=== PATIENT | female | born 1945 | race Caucasian/White ===

== ENCOUNTER 2016-09-06 20:47 | Inpatient (IN) | payer MEDICARE, OTHER ==
--- NOTE | ~2016-09-06 | DS ---
Discharge Summary [facility] [address] [place]. [address] NAME: MAGALYS BILL : [birth year] STATUS : DIS IN PAT#: [id number] AGE: 71 ADM/REG DATE : 09/06/16 MR#: [id number] REPORT SERV DATE: 09/16/16 DICTATED BY: FIOR BROOKE DATE: 09/14/16 REPORT STATUS : Draft TRANSCRIBED BY: MODL DATE: 09/14/16 ADMISSION DATE: 09/06/2016 DISCHARGE DATE: 09/14/2016 DISCHARGE DIAGNOSES: 1. Severe sepsis with shock present on admission. 2. Bacteremia with Pantoea agglomerans and viridans Streptococcus. 3. Abdominal pain, uncertain etiology despite CT and endoscopic imaging. 4. Elevated troponin with present illness, rising to 6.17 on 09/09/2016 with normal LAD, circumflex, and right coronary artery on arteriography with 25% left main origin stenosis. Positive troponin thought to be demand ischemia. 5. Uncontrolled hypertension, improved control at discharge. 6. Diffuse left perihilar and left lower lobe infiltrate, present on admission, improved at discharge. 7. Acute kidney injury, present on admission, resolved. 8. Encephalopathy, present on admission, resolved. 9. Chronic anemia. 10.Chronic pain syndrome. 11.Depression and anxiety. 12.Type 2 diabetes. 13.History of peptic ulcer disease. 14.History of gastrointestinal bleeding. 15.History of colon polyp with carcinoma post partial colon resection and reanastomosis. 16.Previous back surgery with postop methicillin-sensitive Staphylococcus aureus infection. 17.History of deep venous thrombosis. 18.Hyperlipidemia. 19.Osteoarthritis with bilateral total knee arthroplasties, right total hip arthroplasty, and left shoulder arthroplasty. 20.Internal hemorrhoids, diverticulosis, patent end-to-end colonic anastomosis on colonoscopy, 09/14/2016. 21.Gastritis on EGD, 09/14/2016. OPERATIONS AND PROCEDURES: Cardiac catheterization 09/10/2016, Dr. Nathan Ramon; EGD and colonoscopy, Dr. Matias Calles, 09/14/2016. PRESENT ILLNESS: This is a 71-year-old white female, who was triaged in the emergency room on 09/06/2016 at 1640 hours with weakness, confusion, and multiple falls. Admission ER vital signs; blood pressure 72/43, temp 99.3, pulse 86, respirations 20, and O2 saturation 93%. After evaluation in the emergency room, she was thought to have sepsis, pneumonia, and acute renal failure. She was referred to the Hospitalist Service for admission. She was seen by Dr. Preston Lyons and admitted as described on admission history and physical examination. ADDITIONAL HISTORY: Per Dr. Lyons. Discharge Summary [address] [address] NAME: MAGALYS BILL : 46 STATUS : DIS IN PAT#: [id number] AGE: 71 ADM/REG DATE : 09/06/16 MR#: [id number] REPORT SERV DATE: 09/16/16 DICTATED BY: FIOR BROOKE DATE: 09/14/16 REPORT STATUS : Draft TRANSCRIBED BY: RAFAEL DATE: 09/14/16 PHYSICAL EXAMINATION: Per Dr. Loyns. ADMISSION LABORATORY: Per Dr. Lyons. HOSPITAL COURSE: She was admitted by Dr. Lyons to the Intermediate Care Unit with: 1. Severe sepsis with shock. 2. Pneumonia. 3. Acute renal failure. 4. Acute encephalopathy. On admission, she was given crystalloid volume resuscitation and placed on a Levophed drip. Cultures were obtained. She was started on broad-spectrum antimicrobial therapy. Her hospitalist care was by Dr. Cervantes on 09/07/2016. She was moved out of the [facility] to the [address] [place] [address]. Her subsequent hospitalist care was by the undersigned. Her shock resolved. During the course of her hospitalization, she actually had uncontrolled hypertension and required intensification of her home medication regimen. Her encephalopathy resolved with treatment of her sepsis. She did not have any evidence for encephalitis or meningitis with her presentation. A CT brain done on admission showed mild cortical volume loss and findings compatible with minimal chronic deep white matter ischemic changes but no acute intracranial abnormality. Her acute kidney injury resolved with the above-mentioned therapy. Her serum creatinine which was 4.57 on admission was 0.61 at discharge. Her blood cultures from admission grew Pantoea agglomerans, Staph species agglutination negative (probable contamination), and Strep viridans. Her evaluation for possible source included transthoracic echocardiography. This showed overall left ventricular systolic function intact at 58% with apical dyskinesis new from 07/19/2012. Diastolic function was intact and right ventricular systolic function was intact. A urinalysis done on admission was negative. A CT scan of her abdomen and pelvis done with oral but without IV contrast did not demonstrate any intraabdominal abscess or other abnormality to account for the above-mentioned bacteremia. Additional gastrointestinal imaging was done with an EGD and colonoscopy as outlined above. Findings are as noted. She was seen in Infectious Disease consultation by Dr. Gordy Draper. Her antimicrobial therapy was changed to Ancef. He concurred with her GI evaluation. He felt she could transition to oral antibiotics today with Levaquin for seven days to complete a 14-day course of treatment in the absence of any identifiable source that needed further evaluation. None was found. Discharge Summary [facility] [address] [facility] [place]. [address] NAME: MAGALYS BILL : [birth year] STATUS : DIS IN PAT#: [id number] AGE: 71 ADM/REG DATE : 09/06/16 MR#: [id number] REPORT SERV DATE: 09/16/16 DICTATED BY: FIOR BROOKE DATE: 09/14/16 REPORT STATUS : Draft TRANSCRIBED BY: RAFAEL DATE: 09/14/16 She had a significant troponin elevation with her present illness. Her troponin was 0.63 on 09/07/2016 and 6.17 on 09/09/2016. She had some dyspnea and epigastric pain. Cardiology consultation was obtained. She was seen by Dr. Nathan Ramon. His impression was demand ischemia. An echocardiogram was done. Because of the above-mentioned wall abnormality, troponin elevation, and presentation, cardiac catheterization was done with findings as noted above. With resolution of her encephalopathy, her home pain management regimen was continued. There were no complications or mental status changes with this. By 09/14/2016, post endoscopic evaluation, she thought she was almost back to normal. She thought she could manage at home. She had been seen by Physical Therapy who suggested home therapy. Given her overall clinical and biochemical improvement as described, it was felt she had achieved a level of improvement and stability where she could be safely discharged home with outpatient followup to see Dr. Machuca in one week. She has a followup to see her pain management physician this week. She also follows up with Sports Medicine. She will continue her home diet. Her activity will be as tolerated plus as directed by Physical Therapy. DISCHARGE MEDICATIONS: Norvasc 10 mg daily; docusate 200 mg twice daily; Cymbalta 60 mg daily; Prinzide 20/12.5 daily; Protonix 40 mg twice daily; Percocet 10/325, a half to one four times daily as needed; Antoinette-Colace two tablets twice daily; Crestor 20 mg daily; Lunesta 3 mg at bedtime; Embeda 20/0.8 one capsule daily; Zanaflex as needed (my request to discontinue if possible); and Levaquin 750 mg daily for the next seven days. Discharge time greater than 30 minutes. DD/MODL Fior Brooke M.D. / [id number] CC: Moo Farmer M.D. Gregory Olds, MD Mark Thel, M.D. Hal Hill, M.D. Kevin P Luce, M.D. F. Lee Hamilton, M.D.
--- NOTE | ~2016-09-06 | EGD ---
EGD REPORT [facility] [address] [address] NAME: MAGALYS RETANA : 46 STATUS : ADM IN PAT#: [id number] AGE: 71 ADM/REG DATE : 09/06/16 MR#: [id number] REPORT SERV DATE: 09/14/16 DICTATED BY: ANAND CRUZ DATE: 09/14/16 REPORT STATUS : Draft TRANSCRIBED BY: [facility] DATE: 09/14/16 Endoscopy Center Patient Name: Magalys Retana Date of : 1945 Attending MD: ANAND CRUZ, Procedure Date No Time: 09/14/2016 Procedure: Colonoscopy Indications: Iron deficiency anemia secondary to chronic blood loss. Also unexplained bacteremia/sepsis Referring MD: FINESSE ROMERO MD Medicines: Monitored Anesthesia Care Complications: No immediate complications. Estimated blood loss: None. Procedure: Pre-Anesthesia Assessment: - ASA Grade Assessment: III - A patient with severe systemic disease. After I obtained informed consent, the scope was passed under direct vision. Throughout the procedure, the patient's blood pressure, pulse, and oxygen saturations were monitored continuously. The PCF [id number] was introduced through the anus and advanced to the cecum, identified by appendiceal orifice and ileocecal valve. The colonoscopy was performed without difficulty. The patient tolerated the procedure well. The quality of the bowel preparation was good. Findings: The perianal and digital rectal examinations were normal. Internal hemorrhoids were found during retroflexion and were Grade I (internal hemorrhoids that do not prolapse). A few small-mouthed diverticula were found in the sigmoid colon. There was evidence of a prior end-to-end colo-colonic anastomosis in the recto-sigmoid colon. This was patent. This was characterized by healthy appearing mucosa. The exam was otherwise without abnormality on direct and retroflexion views. Impression: - Internal hemorrhoids. - Diverticulosis in the sigmoid colon. - Patent end-to-end colo-colonic anastomosis. - The examination was otherwise normal on direct and retroflexion views. Recommendation: - Patient has a contact number available for emergencies. The signs and symptoms of potential delayed complications were discussed with the patient. Return to EGD REPORT [address] [address] NAME: MAGALYS RETANA : [birth year] STATUS : ADM IN [facility]#: [id number] AGE: 71 ADM/REG DATE : 09/06/16 MR#: [id number] REPORT SERV DATE: 09/14/16 DICTATED BY: ANAND CRUZ DATE: 09/14/16 REPORT STATUS : Draft TRANSCRIBED BY: [employer] DATE: 09/14/16 normal activities tomorrow. Written discharge instructions were provided to the patient. - Return to previous diet. - Continue present medications. - Return to previous diet. - Repeat colonoscopy in 5 years for surveillance. Procedure Code(s): --- Professional --- 97620, Colonoscopy, flexible, proximal to splenic flexure; diagnostic, with or without collection of specimen(s) by brushing or washing, with or without colon decompression (separate procedure) Diagnosis Code(s): --- Professional --- K64.0, First degree hemorrhoids K57.30, Diverticulosis of large intestine without perforation or abscess without bleeding Z98.0, Intestinal bypass and anastomosis status D50.0, Iron deficiency anemia secondary to blood loss (chronic) CPT copyright 2013 [employer]. All rights reserved. The codes documented in this report are preliminary and upon retort feeder ground bone review may be revised to meet current compliance requirements. ANAND CRUZ, 09/14/2016 8:53 AM Number of Addenda: 0 Note Initiated On: 09/14/2016 8:08 AM Scope Withdrawal Time 0 hours 14 minutes 34 seconds [address] [place] [address]
--- NOTE | ~2016-09-06 | CN ---
Consultation Report [facility] [address] [place]. [address] NAME: MAGALYS BILL : [birth year] STATUS : ADM IN [facility]#: [id number] AGE: 71 ADM/REG DATE : 09/06/16 MR#: [id number] REPORT SERV DATE: 09/11/16 DICTATED BY: SUSIE DRAPER DATE: 09/10/16 REPORT STATUS : Draft TRANSCRIBED BY: MODL DATE: 09/10/16 INFECTIOUS DISEASE CONSULT DATE OF CONSULTATION: 09/10/2016 REASON FOR CONSULTATION: Sepsis. HISTORY OF PRESENT ILLNESS: This is a 71-year-old female with a past medical history notable for diabetes, partial colon resection for a cancerous polyp in 2007, osteoarthritis, status post multiple joint replacements, degenerative spine disease with previous spine surgery complicated by Staph aureus infection in 2007, and other problems as outlined below. She was in her baseline state of health until 09/06/2016 when she had the onset of unsteadiness and fell multiple times and was confused. The patient states that prior to 09/06/2016, she was doing okay without any particular new issues. Because of these falls though, she was brought to the emergency department at [facility] on the afternoon of 09/06/2016 where she had a blood pressure of 72/43 and became mildly tachycardic and was mildly tachypneic and had a white blood cell count of 17,000, procalcitonin of 7, and creatinine of 4.57. Blood cultures were obtained. Her urinalysis is negative. She was started on vancomycin and cefepime. Her white blood cell count improved. She had no significant fevers in the hospital. One of the admission blood cultures has returned with Pantoea agglomerans, viridans strep, and coagulase-negative Staph. Vancomycin was stopped on 09/09/2016. On 09/08/2016, the patient had a CT scan of the abdomen and pelvis without IV contrast which showed no significant pathology. There was some mild dilatation of the extrahepatic biliary duct. The patient has developed some vague episodic abdominal discomfort poorly localized here in the hospital and she says she has had this off and on over the past year without any associated significant nausea, vomiting, or diarrhea. The patient had a mildly elevated troponin on admission and some dyskinesis on echocardiogram leading to cardiac cath today which was essentially negative. She overall does feel better. Finally, she notes some worsening of her chronic back pain, which is followed by Dr. Vazquez of Pain Management. Denies though any outpatient fevers, chills, or sweats. PAST MEDICAL HISTORY: In addition to the above is notable for bilateral total knee arthroplasties, right total hip arthroplasty, and left total shoulder arthroplasty. She has had hysterectomy, appendectomy, and tonsillectomy. Had a past spine stimulator. Other diagnoses include gastroesophageal reflux with hiatal hernia, history of anxiety and depression, chronic anemia, and history of peptic ulcer disease. ALLERGIES: NO KNOWN DRUG ALLERGIES. PRESENT MEDICATIONS: Include cefepime, Lipitor, Colace, Cymbalta, subcutaneous heparin, Protonix, and Senokot. SOCIAL HISTORY: She lives with her . Nonsmoker. Nondrinker. There are 11 cats and a pet dog. She does go to christianity but is not especially active and no particular hobbies. Consultation Report [address] [place]. [address] NAME: MAGALYS BILL : [birth year] STATUS : ADM IN [facility]#: [id number] AGE: 71 ADM/REG DATE : 09/06/16 MR#: [id number] REPORT SERV DATE: 09/11/16 DICTATED BY: SUSIE DRAPER DATE: 09/10/16 REPORT STATUS : Draft TRANSCRIBED BY: RAFAEL DATE: 09/10/16 FAMILY HISTORY: Notable for coronary artery disease. REVIEW OF SYSTEMS: As outlined above. In addition, no recent dental problems. No swallowing symptoms. No genitourinary complaints. No significant weight change. PHYSICAL EXAMINATION: VITAL SIGNS: The patient weighs 90 kg. She is afebrile. Blood pressure 139/76, pulse 82, and respiratory rate 16. GENERAL: She is alert, in no acute distress, and pleasant. HEAD AND NECK: Oral cavity is clear. No thrush. Neck is supple. No adenopathy. LUNGS: Clear to auscultation. CARDIAC: Regular rate and rhythm. Normal S1, S2 without murmur, gallop, or rub. ABDOMEN: Shows bowel sounds to be present, nondistended, very soft. No significant tenderness to palpation. EXTREMITIES: Show no rash or edema. No stigmata of endocarditis. She has a peripheral IV without phlebitis. LABORATORY STUDIES: White blood cell count has declined to 10.0 today, hemoglobin 10.5, and platelets 282. Creatinine 0.73. Procalcitonin yesterday was down to 0.87. Liver function tests on 09/07/2016 normal. Microbiology studies as noted above. Urinalysis is negative. IMAGING STUDIES: As noted. IMPRESSION: Sepsis on admission with shock with one of two admission blood cultures growing Pantoea and viridans strep. The coagulase-negative Staph is most likely a contaminant. The source of this is not clear at all. The polymicrobial bacteremia with these organisms increases our suspicion for a gastrointestinal or biliary tract source, but nothing is evident on the CT scan here, the liver function tests are normal, she has had a cholecystectomy, and she really did not present with symptoms to strongly suggest such as source. She does have some vague abdominal discomfort now. The patient has a history of infection in her spine and has a hardware in her spine and does have worsening back pain, but it would be very unlikely for her to have developed a new spine infection with these organisms. PLAN: 1. We will change antibiotics to Ancef. 2. GI has been consulted. We will consider colonoscopy as an outpatient. Her last colonoscopy was two years ago. 3. May transition her to oral antibiotics on Wednesday with Levaquin for seven more days of therapy to complete a 14 day course of treatment. We will continue the IV Ancef until then. Consultation Report [address] [place]. [address] NAME: MAGALYS BILL : [birth year] STATUS : ADM IN [facility]#: [id number] AGE: 71 ADM/REG DATE : 09/06/16 MR#: [id number] REPORT SERV DATE: 09/11/16 DICTATED BY: SUSIE DRAPER DATE: 09/10/16 REPORT STATUS : Draft TRANSCRIBED BY: RAFAEL DATE: 09/10/16 BRENNEN/RAFAEL Suise Draper M.D. / [id number] CC: Sb Crowe M.D. UNKNOWN
--- NOTE | ~2016-09-06 | PRECARD ---
[facility] [address] [facility] [place]. [address] NAME: MAGALYS RETANA : [birth year] STATUS : ADM IN [facility]#: [id number] AGE: 71 ADM/REG DATE : 09/06/16 MR#: [id number] REPORT SERV DATE: 09/08/16 DICTATED BY: CHAPARRITA RAMON DATE: 09/08/16 REPORT STATUS : Draft TRANSCRIBED BY: RAFAEL DATE: 09/08/16 DATE OF ADMISSION: 09/06/2016 HISTORY: Ms. Magalys Retana is a 71-year-old woman who has been admitted with septic shock, pneumonia, acute kidney injury, encephalopathy. Cardiology is consulted for elevated troponin. Ms. Retana was doing well until this past Wednesday. On Wednesday, she had developed epistaxis, weakness, fatigue, orthostatic symptoms. She states that she fell twice hitting her face and chest against the ground. She was admitted to the ICU with delirium, confusion. Her initial blood pressure 72/43. Her white count was 17,000, creatinine was 4.57, baseline is 0.98, procalcitonin was 7.0, lactate was 1.4, INR is 1.2. Chest x-ray reportedly demonstrated a retrocardiac infiltrate. Two days later, she is feeling much better. She describes some chest wall tenderness. She denies any exertional chest discomfort recently. She denies orthopnea or PND. She has had no palpitations. PAST MEDICAL HISTORY: Hip surgery, prior left shoulder surgery, spinal cord stimulator, cholecystectomy. SOCIAL HISTORY: No alcohol or tobacco. She is . CURRENT MEDICATIONS: Lipitor, Maxipime, Colace, Cymbalta, heparin subcu, vancomycin, cefepime. REVIEW OF SYSTEMS: A complete review of systems obtained, pertinent negative and remarkable, except as noted above and below, all systems addressed. PHYSICAL EXAMINATION: VITAL SIGNS: Blood pressure is about 140/70, heart rate is about 95. GENERAL: Comfortable, in no acute distress. HEENT: No xanthelasma; lips without cyanosis. LUNGS: Clear to auscultation, no wheezes, rales or rhonchi; good breath sounds. Chest wall is mildly tender. COR: No JVD or hepatojugular reflux, no murmurs, rubs or gallops, impulse mid clavicular line without carotid or abdominal bruits; normal S1 and S2. ABDOMEN: Bowel sounds positive, normal activity, without tenderness, masses or hepatosplenomegaly. EXTREMITIES: No edema, cyanosis. SKIN: Normal turgor. MS: Normal muscle strength, without kyphosis/scoliosis. [facility] [address] [place]. [address] NAME: MAGALYS RETANA : [birth year] STATUS : ADM IN PAT#: [id number] AGE: 71 ADM/REG DATE : 09/06/16 MR#: [id number] REPORT SERV DATE: 09/08/16 DICTATED BY: CHAPARRITA RAMON DATE: 09/08/16 REPORT STATUS : Draft TRANSCRIBED BY: RAFAEL DATE: 09/08/16 NEURO/PSYCH: Alert and oriented times 4, no apparent anxiety or depression. DATA: EKG, sinus rhythm with nonspecific ST-T wave changes. Troponin admission initially 0.67, subsequently today is 5.0. BNP is 310. ASSESSMENT: Ms. Retana is markedly improved. Her creatinine decreased from 4.57 to 1.07. Her pressure is stable, she did not receive pressure support while she was in the hospital. She also denies chest discomfort, other than chest tenderness on repeated questioning. Her EKG demonstrates no ischemia. On her presentation, this elevated troponin is most consistent with demand ischemia, not a myocardial infarction. PLAN: 1. We will obtain office notes. 2. Echocardiogram to assess left ventricular function. WILDA/RAFAEL Chaparrita Ramon M.D. / [id number] CC: Noel Cervantes M.D.
--- NOTE | ~2016-09-06 | CN ---
Consultation Report [facility] [address] [place]. [address] NAME: MAGALYS RETANA : [birth year] STATUS : ADM IN [facility]#: [id number] AGE: 71 ADM/REG DATE : 09/06/16 MR#: [id number] REPORT SERV DATE: 09/11/16 DICTATED BY: FORTUNATO GRAVES DATE: 09/11/16 REPORT STATUS : Draft TRANSCRIBED BY: MODEnedelia DATE: 09/11/16 GI CONSULTATION DATE OF CONSULTATION: 09/11/2016 REASON FOR CONSULTATION: Evaluation and management of abdominal pain, sepsis rule out GI source. HISTORY OF PRESENT ILLNESS: Ms Retana is a very pleasant 71-year-old female patient, known to Dr. Nila Nair in the outpatient setting, who presented on the 09/06/2016 with confusion, falls, as well as evidence of sepsis. She has undergone workup with blood cultures being obtained on admission, one of those returned positive for Pantoea agglomerans, Viridans strep, and coagulase negative Staph. She is presently on Ancef. She states that she does not remember a lot about what went on prior to her coming in, but she was feeling up to her baseline health up until around 09/05/2016. She states that she had prior to that been having some episodes with periodic falls, but on 09/05/2016 she had a lot of increased unsteadiness and she had multiple falls and had confusion. In the emergency room, she was hypotensive and tachycardic. Her white blood cell count was elevated at 17 as well as at 7. CT scan of the abdomen and pelvis with no contrast was negative from a Gastrointestinal standpoint. She states that she has had some on and off epigastric abdominal discomfort for the last one year. She states it as a "jug" feeling. No true pain. She states that she will feel a little bit nauseous with this, but she has no vomiting. Her last endoscopy was with Dr. Castano at [facility] in September 2014. This was done for anemia and melena. She had an upper exam on 09/08/2014 showing erythema at the gastroesophageal junction with biopsies being taken and hiatal hernia. Normal duodenum and erythematous mucosa in the prepyloric region of the stomach, which all were biopsied. Colonoscopy the next day, showed patent end-to-end colocolonic anastomosis. She had diverticulosis of the sigmoid colon and a normal examined ileum. Biopsies from that exam, chemical gastritis, H. pylori negative on the upper as well as squamocolumnar junction mucosa within normal limits. No intestinal metaplasia or dysplasia was seen. I have discussed with the patient EGD and colonoscopy inpatient vs outpatient. I had discussed this with Dr. Draper prior to seeing the patient. He stated it could be done as an outpatient if needed. The patient opts to have this done while she is in the hospital. I discussed with her risks, benefits, alternatives, and complications to include, but not limited to the risk of bleeding, perforation, infection, reaction to medication as well as cardiac and pulmonary side effects. She will be in the hospital over the weekend for IV antibiotics. We will plan to prep her on Wednesday for endoscopy on Wednesday. She has been seen by Cardiology and has had a cardiac catheterization, which was negative and cardiology has signed off. PAST MEDICAL HISTORY: Positive for diverticulosis, diabetes, partial colon resection secondary to cancerous polyp, osteoarthritis, joint replacement, degenerative spine disease with spine surgery in the past, history of Staph aureus infection status post back surgery, gastritis. She has had bilateral total knee, right total hip, left total shoulder, appendectomy, hysterectomy, tonsillectomy, spine stimulator, GERD, hiatal hernia, anxiety Consultation Report [facility] [address] [place]. [address] NAME: MAGALYS RETANA : [birth year] STATUS : ADM IN [facility]#: [id number] AGE: 71 ADM/REG DATE : 09/06/16 MR#: [id number] REPORT SERV DATE: 09/11/16 DICTATED BY: FORTUNATO GRAVES DATE: 09/11/16 REPORT STATUS : Draft TRANSCRIBED BY: MODEnedelia DATE: 09/11/16 and depression, and anemia. SOCIAL HISTORY: She lives independently with her . Denies alcohol, tobacco, or illicits. FAMILY HISTORY: Noncontributory from a GI standpoint. ALLERGIES: ADHESIVE TAPE, KIWI, AND ORANGE BLOSSOM. MEDICATIONS: Docusate sodium, Cymbalta, Lunesta, Prinzide, Embeda, Patanol, Percocet, Protonix, Crestor, and Antoinette-Colace. REVIEW OF SYSTEMS: A 10-point review of systems has been obtained with pertinent positives being addressed in the history of present illness. PHYSICAL EXAMINATION: VITAL SIGNS: Temperature is 97.4, pulse 94, respirations 18, and blood pressure 129/79. NEUROLOGIC: Reveals an alert, obese female resting in bed with no obvious focal deficits. GENERAL: Cooperative, in no apparent distress. Awake, alert and oriented x3. HEAD, EARS, EYES, NOSE, AND THROAT: Anicteric. Pupils are equal, round, and reactive to light and accommodation. Normocephalic and atraumatic. NECK: Supple. No JVD, no palpable nodes. LUNGS: Decreased bilaterally in the bases. Normal respiratory effort exhibited, equal expansion. CARDIAC: Regular rate and rhythm. ABDOMEN: Obese with mild epigastric tenderness to palpation without rebound or guarding. Hypoactive bowel sounds. No organomegaly appreciated. SKIN: Warm, dry, and intact. PERTINENT LABORATORY DATA: Sodium 142, potassium 3.8, BUN 9, and creatinine 0.4. White count 7.6, hemoglobin 10.2, hematocrit 31.4, and platelets 292. Troponin is elevated at 4.11. Total bilirubin 0.4, alkaline phosphatase 70, ALT 14, AST 62, and procalcitonin presently 0.87. ASSESSMENT/PLAN: 1. Strep viridans/Pantoea agglomerans sepsis/shock, present on admission. 2. Elevated troponin status post negative cardiac cath. 3. Abdominal discomfort, epigastric, ongoing. 4. Acute kidney injury. PLAN: 1. I have discussed with the patient. She prefers for endoscopy before discharge. We will plan to do this on Wednesday under the care of Dr. Argueta. Consultation Report [address] [place]. [address] NAME: MAGALYS RETANA : [birth year] STATUS : ADM IN [facility]#: [id number] AGE: 71 ADM/REG DATE : 09/06/16 MR#: [id number] REPORT SERV DATE: 09/11/16 DICTATED BY: FORTUNATO GRAVES DATE: 09/11/16 REPORT STATUS : Draft TRANSCRIBED BY: MODL DATE: 09/11/16 2. The patient requests MiraLAX prep. We will write for MiraLAX prep. Prep her on Wednesday for endoscopy on Wednesday. ARIANA/BREANNAL MAKAYLA Finn / [id number] CC: Sb Crowe M.D.
--- NOTE | ~2016-09-06 | HP ---
History And Physical [place] [address] [place]. [address] NAME: MAGALYS BILL : [birth year] STATUS : ADM IN [facility]#: [id number] AGE: 71 ADM/REG DATE : 09/06/16 MR#: [id number] REPORT SERV DATE: 09/07/16 DICTATED BY: PIYUSH TINAJERO DATE: 09/06/16 REPORT STATUS : Draft TRANSCRIBED BY: MODEnedelia DATE: 09/06/16 DATE OF ADMISSION: 09/06/2016 CHIEF COMPLAINT: A 71-year-old female presenting with confusion, falls, and evidence of sepsis. HISTORY OF PRESENTING ILLNESS: The patient's history was obtained through an interview with the patient and a phone conversation with her coupled with review of [facility] medical records. Despite best efforts, it is still difficult to understand with clarity the patient's history. The history provided by the patient's seems to have some holes in it and the patient is often so confused that it is difficult to know if she can recollect the exact details of her recent history. But it seems that on and off over this last week, she has been having delirium and confusion that has progressed, but has also become weak and lightheaded, and has had multiple falls. Finally by the day of admission, the patient was becoming combative, very confused, and delirious. She denies having any hallucinations though and she had multiple falls, unable to bear weight on her legs. The patient admits to a cough that has been nonproductive. She thinks she has had some slight shortness of breath characterized by dyspnea on exertion. No chest pain. Currently, the patient denies any pain at all. No headache. No back pain. No neck pain. No chest pain. No abdominal pain. No sore throat. She has noticed no change in bowel or bladder habit. She has not noticed any fevers or chills. REVIEW OF SYSTEMS: Otherwise, a 14-point review of systems was obtained and was negative, although could question validity in light of the patient's confusion. PAST MEDICAL HISTORY: 1. Diabetes. 2. Depression and anxiety. 3. Peptic ulcer disease, seen by Dr. Alexander Molina. 4. Elevated cholesterol. 5. Postoperative DVT. 6. Colon polyps. 7. Post lumbar spine MSSA infection. 8. Cellulitis. PAST SURGICAL HISTORY: History And Physical [place] [address] [place]. [address] NAME: MAGALYS BILL : [birth year] STATUS : ADM IN PAT#: [id number] AGE: 71 ADM/REG DATE : 09/06/16 MR#: [id number] REPORT SERV DATE: 09/07/16 DICTATED BY: PIYUSH TINAJERO DATE: 09/06/16 REPORT STATUS : Draft TRANSCRIBED BY: RAFAEL DATE: 09/06/16 1. Bilateral knee surgeries. 2. Lumbar spine surgery. 3. Appendectomy. 4. Cholecystectomy. 5. Hysterectomy. 6. Spinal cord stimulator. 7. Left shoulder surgery. 8. Right hip surgery. ALLERGIES: ORANGE BLOSSOMS AND KIWI. SOCIAL HISTORY: No tobacco abuse. No alcohol abuse. He is . The patient is on disability. Lives in [place], [place]. FAMILY HISTORY: Coronary artery disease, diabetes, and stroke. CURRENT MEDICATIONS: Colace 200 mg p.o. b.i.d., Cymbalta 60 mg p.o. daily, Lunesta 3 mg p.o. q.h.s., lisinopril/hydrochlorothiazide 20/12.5 p.o. daily, morphine naltrexone Embeda 20/0.8 p.o. daily, eyedrops, Percocet p.r.n., Protonix 40 mg p.o. b.i.d., Crestor 20 mg p.o. daily, muscle relaxer. PHYSICAL EXAMINATION: VITAL SIGNS: Temperature 99.3, pulse 86, blood pressure 72/43, respiratory rate 20, O2 saturation 93% on room air. GENERAL: A toxic-appearing female, very confused and irritable, but in no evidence of distress otherwise. HEENT: Pupils equal, round, and reactive to light. No conjunctival pallor. No scleral icterus. Nares are patent. Oropharynx is clear of obstruction. Very dry mucous membranes. Cracking of the lips and mouth. NECK: Trachea midline. No thyromegaly. LYMPH: No cervical lymphadenopathy. No supraclavicular lymphadenopathy. RESPIRATORY: Scattered crackles on examination and rhonchi. No wheezes. No rales. I do not appreciate focal egophony. The patient has a labored respiratory effort. CARDIOVASCULAR: Regular rate and rhythm. No murmurs, rubs, or gallops. No extremity edema is appreciated. ABDOMEN: Completely soft, nontender, nondistended. Normal bowel sounds auscultated throughout. No hepatosplenomegaly. DERMATOLOGICAL: Warm and dry extremities. No pallor. No cyanosis. PSYCHIATRIC: An animated affect. Very irritable. Alert, but disoriented to time, location, and recent situation and history. LABORATORY DATA: White blood cell count 17, hemoglobin 11, hematocrit 32, platelets 231. Sodium 129, potassium 3.9, chloride 97, bicarb 21, BUN 64, creatinine 4.57 from baseline creatinine of 0.98, glucose 67. Urinalysis negative for infection, but shows 10 hyaline casts. Procalcitonin 7.02, albumin 2.9, lactic acid 1.4. INR 1.2. STUDIES: History And Physical [address] [address] NAME: MAGALYS BILL : [birth year] STATUS : ADM IN [facility]#: [id number] AGE: 71 ADM/REG DATE : 09/06/16 MR#: [id number] REPORT SERV DATE: 09/07/16 DICTATED BY: PIYUSH TINAJERO DATE: 09/06/16 REPORT STATUS : Draft TRANSCRIBED BY: RAFAEL DATE: 09/06/16 1. Chest x-ray by my own evaluation just seemed to show a focal area of left lower lung infiltrate, retrocardiac. 2. EKG by my own evaluation shows sinus rhythm. ASSESSMENT AND PLAN: 1. Severe sepsis with shock. The patient has acute renal failure. White blood cell count of 17. Encephalopathy and shock. Check blood cultures. Place on IV antibiotics. Place on Levophed drip. 2. Pneumonia. Check blood cultures. Place on IV antibiotics. 3. Acute renal failure. Place Monterroso catheter. Place on IV fluids. Negative urinalysis. 4. Acute encephalopathy. Provide supportive care. KPL/MODL Piyush Tinajero M.D. / [id number] CC: Moo Brown M.D.
--- NOTE | ~2016-09-06 | EGD ---
EGD REPORT [facility] [address] [address] NAME: MAGALYS RETANA : 47 STATUS : ADM IN PAT#: [id number] AGE: 71 ADM/REG DATE : 09/06/16 MR#: [id number] REPORT SERV DATE: 09/14/16 DICTATED BY: ANAND CRUZ DATE: 09/14/16 REPORT STATUS : Draft [facility]ANS[facility]IBED [facility]: [facility] DATE: 09/14/16 Endoscopy Center Patient Name: Magalys Retana Date of : 1945 Attending MD: ANAND CRUZ, Procedure Date No Time: 09/14/2016 Procedure: Upper GI endoscopy Indications: Epigastric abdominal pain. Also unexplained bacteremia Referring MD: FINESSE ROMERO MD Medicines: Monitored Anesthesia Care Complications: No immediate complications. Estimated blood loss: None. Procedure: Pre-Anesthesia Assessment: - ASA Grade Assessment: III - A patient with severe systemic disease. After obtaining informed consent, the endoscope was passed under direct vision. Throughout the procedure, the patient's blood pressure, pulse, and oxygen saturations were monitored continuously. The GIF [id number] was introduced through the mouth, and advanced to the second part of duodenum. The upper GI endoscopy was accomplished without difficulty. The patient tolerated the procedure well. Findings: The esophagus was normal. Patchy moderate inflammation characterized by erosions and erythema was found in the entire examined stomach. Biopsies were taken with a cold forceps for histology. Verification of patient identification for the specimen was done. Estimated blood loss was minimal. The cardia and gastric fundus were normal on retroflexion. The examined duodenum was normal. Impression: - Normal esophagus. - Gastritis. Biopsied. - Normal examined duodenum. Recommendation: - Patient has a contact number available for emergencies. The signs and symptoms of potential delayed complications were discussed with the patient. Return to normal activities tomorrow. Written discharge instructions were provided to the patient. - Return to previous diet. - Continue present medications. - Await pathology results. EGD REPORT [facility] [address] [place] [address]. [address] NAME: MAGALYS RETANA : [birth year] STATUS : ADM IN [facility]#: [id number] AGE: 71 ADM/REG DATE : 09/06/16 MR#: [id number] REPORT SERV DATE: 09/14/16 DICTATED BY: ANAND CRUZ DATE: 09/14/16 REPORT STATUS : Draft TRANSCRIBED BY: [employer] DATE: 09/14/16 Procedure Code(s): --- Professional --- 85701, Esophagogastroduodenoscopy, flexible, transoral; with biopsy, single or multiple Diagnosis Code(s): --- Professional --- K29.70, Gastritis, unspecified, without bleeding R10.13, Epigastric pain CPT copyright 2013 [employer]. All rights reserved. The codes documented in this report are preliminary and upon direct marketing coordinator review may be revised to meet current compliance requirements. ANAND CRUZ, 09/14/2016 8:55 AM Number of Addenda: 0 Note Initiated On: 09/14/2016 8:19 AM Scope Withdrawal Time 0 hours 0 minutes [address] [place] [id number]
[2016-09-06 17:42] LABS: BASOPHILS 0.1 %; BASOPHILS ABSOLUTE 0.02 10/3/uL (0.0-0.16); EOSINOPHILS 0.1 %; EOSINOPHILS ABSOLUTE 0.02 10/3/uL (0.0-0.53); IMMATURE GRANULOCYTES ABSOLUTE 0.17 10/3/uL (0.0-0.11); LYMPHOCYTES 5.6 %; LYMPHOCYTES ABSOLUTE 0.95 10/3/uL (0.67-4.30); MEAN CORPUS HGB CONC 33.1 g/dL (32.0-36.0); MEAN CORPUSCULAR HEMOGLOB 31.8 pg (26.0-34.0); MEAN CORPUSCULAR VOLUME 95.8 fL (80-100); MEAN PLATELET VOLUME 11.5 fL (9.2-13.0); MONOCYTES 9.4 %; MONOCYTES ABSOLUTE 1.59 10/3/uL (0.21-1.20); NEUTROPHILS 83.8 %; NEUTROPHILS ABSOLUTE 14.24 10/3/uL (2.02-8.40); PLATELET COUNT 231 10/3/uL (150-400); RED CELL COUNT 3.37 10/6/uL (4.0-5.6)
[2016-09-06 17:44] LABS: HEMATOCRIT 32.3 % (36.0-48.0); HEMOGLOBIN 10.7 g/dL (12.0-16.0); MANUAL DIFF NO %
[2016-09-06 17:51] LABS: INTERNATIONAL NORMAL RATI 1.2 UNITS (-); PARTIAL THROMBO TIME 33.8 SEC (22.5-37.2)
[2016-09-06 17:52] LABS: PROTIME (NOT ORD) 15.3 SEC (12.0-14.5)
[2016-09-06 17:57] LABS: ACETAMINOPHEN LEVEL (TYLENOL) 3.2 MCG/ML (10.0-20.0); ALBUMIN 2.9 G/DL (3.5-5.0); CALCIUM, SERUM 8.2 MG/DL (8.5-10.4); CHLORIDE, SERUM 97 MMOL/L (96-112); POTASSIUM, SERUM 3.8 MMOL/L (3.5-5.3); SALICYLATE 1.8 MG/DL (-); SGOT(AST) 44 U/L (5-40); SGPT(ALT) 15 U/L (5-65); TOTAL BILIRUBIN 0.6 MG/DL (0-1.2); TOTAL PROTEIN 6.9 G/DL (6.0-8.5)
[2016-09-06 17:58] LABS: A/G RATIO 0.7 (0.7-1.9); ALCOHOL < 3 MG/DL (0); ALKALINE PHOSPHATASE 80 U/L (45-117); BUN (BLOOD UREA NITROGEN) 64 MG/DL (6-23); CO2 (CARBON DIOXIDE) 21 MMOL/L (24-34); CREATININE 4.57 MG/DL (0.55-1.02); GFR AFRICAN AMERICAN 11 ML/MIN (>=60); GFR NON AFRICAN AMERICAN 9 ML/MIN (>=60); GLUCOSE, SERUM 67 MG/DL (60-99); SODIUM, SERUM 129 MMOL/L (135-148)
[2016-09-06 17:59] LABS: LACTATE 1.4 MMOL/L (0.3-2.4)
[2016-09-06 18:13] LABS: PROCALCITONIN 7.02 ng/mL (<0.5)
[2016-09-06 18:16] LABS: WBC (NOT ORDERED) (RFLEX) 0 (0-5)
[2016-09-06 18:24] LABS: ASCORBIC ACID (UR NOT ORDER) NEG (NEG); BILIRUBIN, URINE NEGATIVE (NEG); ER URINALYSIS TAT 0 Hrs 09 Mins; KETONE, URINE NEGATIVE (NEG); LEUKOCYTE ESTERASE(NOT OR NEG (NEG); NITRITE (URINE) NEG (NEG)
[~2016-09-06 20:47] MED LIST: ACET500CAP PO; AMB10 PO; ASAB PO; AUG875 PO; BIST PO; BREWERS YEAST PO; BYETTA10 SC; C5 PO; CELEBREX2 PO; CELEXA40 MG PO; CRESTOR20 MG PO; CRESTOR40 MG PO; CYMBALTA60 PO; DSS PO; FISH OIL1200 MG PO; FISH-EPA1000 MG PO; GARCINIA CAMBOGIA PO; GARLIFE PO; GLUCOPHAGE1000 MG PO; LEG CRAMPS PM PO; LEG CRAMPS TAB PO; LORTAB10 PO; METHOC500B PO; MONODOX100 MG PO; MULTIPLE VIT PO; NEUR300 PO; NEUR400 PO; NEUR600 PO; NORCO1 TAB PO; OTC STOOL SOFTENER PO; PCET PO; PENICILLN VK500 MG OR; PERCOCET1 TA4 PO; PRILOSEC OTC20 MG PO; PRINZIDE1 TA1 PO; PROTONIX PO; RASPBERRY KETONE PO; SAFFRON PO; SENTAB PO; STOOL SOFTEN240 MG PO; SUDAFED PO; TRAZ50 PO; VITAMIN D31000 UNIT PO; ZANAFLEX 4 MG TA4 MG PO; ZANTAC150 MG PO; ZESTORETIC PO; [UNRECOGNIZED DRUG - REMARK] PO
[2016-09-06] MEDS ORDERED: CYMBALTA60 PO (21:42)
[2016-09-06] MEDS ORDERED: D.O.S.100 MG PO (21:43)
[2016-09-06] MEDS ORDERED: PERI-COLACE1 TAB PO (21:43)
[2016-09-06] MEDS ORDERED: PERCOCET 10/3251 TAB PO (21:43)
[2016-09-06] MEDS ORDERED: PROTONIX PO (21:43)
[2016-09-06] MEDS ORDERED: CRESTOR20 MG PO (21:43)
[2016-09-06] MEDS ORDERED: PATANOL OPH (21:44)
[2016-09-06] MEDS ORDERED: LUNESTA3 MG PO (21:44)
[2016-09-06] MEDS ORDERED: PRINZIDE1 TA1 PO (21:44)
[2016-09-06] MEDS ORDERED: EMBEDA1 CAP PO (21:45)
[2016-09-06] MEDS ORDERED: TIZANIDINE (22:19)
[2016-09-07 03:48] LABS: HEMATOCRIT 29.9 % (36.0-48.0); HEMOGLOBIN 9.9 g/dL (12.0-16.0); MEAN CORPUS HGB CONC 33.1 g/dL (32.0-36.0); MEAN CORPUSCULAR HEMOGLOB 31.6 pg (26.0-34.0); MEAN CORPUSCULAR VOLUME 95.5 fL (80-100); MEAN PLATELET VOLUME 11.3 fL (9.2-13.0); PLATELET COUNT 226 10/3/uL (150-400); RBC DISTRIBUTION WIDTH 14.4 % (12.0-16.0); RED CELL COUNT 3.13 10/6/uL (4.0-5.6); WHITE BLOOD CELLS 13.7 10/3/uL (4.5-10.5)
[2016-09-07 03:49] LABS: MANUAL DIFF YES %
[2016-09-07 03:51] LABS: INTERNATIONAL NORMAL RATI 1.3 UNITS (-); PARTIAL THROMBO TIME 40.7 SEC (22.5-37.2); PROTIME (NOT ORD) 16.1 SEC (12.0-14.5)
[2016-09-07 04:08] LABS: A/G RATIO 0.7 (0.7-1.9); ALBUMIN 2.5 G/DL (3.5-5.0); ALKALINE PHOSPHATASE 78 U/L (45-117); CALCIUM, SERUM 7.6 MG/DL (8.5-10.4); CHLORIDE, SERUM 110 MMOL/L (96-112); CO2 (CARBON DIOXIDE) 18 MMOL/L (24-34); GLOBULIN 3.7 G/DL (2.5-4.1); GLUCOSE, SERUM 63 MG/DL (60-99); POTASSIUM, SERUM 3.7 MMOL/L (3.5-5.3); SGOT(AST) 62 U/L (5-40); SGPT(ALT) 14 U/L (5-65); TOTAL BILIRUBIN 0.4 MG/DL (0-1.2); TOTAL PROTEIN 6.2 G/DL (6.0-8.5)
[2016-09-07 04:15] LABS: BUN (BLOOD UREA NITROGEN) 55 MG/DL (6-23); CREATININE 2.65 MG/DL (0.55-1.02); GFR AFRICAN AMERICAN 20 ML/MIN (>=60); GFR NON AFRICAN AMERICAN 18 ML/MIN (>=60); SODIUM, SERUM 141 MMOL/L (135-148)
[2016-09-07 04:16] LABS: TROPONIN I 0.63 NG/ML (<0.05)
[2016-09-07 04:47] LABS: BAND NEUTROPHILS 9 %; LYMPHOCYTES 10 %; LYMPHOCYTES ABSOLUTE (CALC) 1.37 10/3/uL (0.67-4.30); MONOCYTES 5 %; MONOCYTES ABSOLUTE (CALC) 0.69 10/3/uL (0.21-1.20); NEUTROPHILS ABSOLUTE (CALC) 11.65 10/3/uL (2.02-8.40); PLATELET ESTIMATE ADQ (ADEQUATE); SEGMENTED NEUTROPHIL (0) 76 %; TOTAL NUCLEATED CELLS 100
[2016-09-07 04:48] LABS: RBC MORPHOLOGY NORM (NORMAL)
[2016-09-07 06:23] LABS: PROCALCITONIN 4.25 ng/mL (<0.5)
[2016-09-07 13:28] LABS: AMPHETAMINES (NOT ORD) POS (NEG); BARBITURATES (NOT ORDERED NEG (NEG); BENZODIAZEPINES (NOT ORD) NEG (NEG); CANNABINOIDS (THC) POS (NEG); COCAINE (NOT ORDERED) NEG (NEG); OPIATES POS (NEG); PHENCYCLIDINE(PCP) NEG (NEG); TRICYCLICS POS (NEG)
[2016-09-08 05:09] LABS: BASOPHILS 0.1 %; BASOPHILS ABSOLUTE 0.02 10/3/uL (0.0-0.16); EOSINOPHILS 0.2 %; EOSINOPHILS ABSOLUTE 0.03 10/3/uL (0.0-0.53); HEMATOCRIT 31.1 % (36.0-48.0); HEMOGLOBIN 9.9 g/dL (12.0-16.0); IMMATURE GRANULOCYTES 0.3 %; IMMATURE GRANULOCYTES ABSOLUTE 0.05 10/3/uL (0.0-0.11); LYMPHOCYTES 5.5 %; LYMPHOCYTES ABSOLUTE 0.82 10/3/uL (0.67-4.30); MEAN CORPUS HGB CONC 31.8 g/dL (32.0-36.0); MEAN CORPUSCULAR HEMOGLOB 30.9 pg (26.0-34.0); MEAN CORPUSCULAR VOLUME 97.2 fL (80-100); MEAN PLATELET VOLUME 11.3 fL (9.2-13.0); MONOCYTES 6.4 %; MONOCYTES ABSOLUTE 0.96 10/3/uL (0.21-1.20); NEUTROPHILS 87.5 %; NEUTROPHILS ABSOLUTE 13.08 10/3/uL (2.02-8.40); PLATELET COUNT 255 10/3/uL (150-400); RBC DISTRIBUTION WIDTH 14.5 % (12.0-16.0)
[2016-09-08 05:10] LABS: MANUAL DIFF NO %
[2016-09-08 05:19] LABS: CALCIUM, SERUM 8.5 MG/DL (8.5-10.4); CHLORIDE, SERUM 111 MMOL/L (96-112); CO2 (CARBON DIOXIDE) 21 MMOL/L (24-34); POTASSIUM, SERUM 3.9 MMOL/L (3.5-5.3); SODIUM, SERUM 142 MMOL/L (135-148)
[2016-09-08 05:20] LABS: BUN (BLOOD UREA NITROGEN) 29 MG/DL (6-23); CREATININE 1.07 MG/DL (0.55-1.02); GFR AFRICAN AMERICAN 61 ML/MIN (>=60); GFR NON AFRICAN AMERICAN 53 ML/MIN (>=60); GLUCOSE, SERUM 104 MG/DL (60-99); TROPONIN I 5.04 NG/ML (<0.05)
[2016-09-08 12:29] LABS: FREE T4 1.11 NG/DL (0.76-1.46)
[2016-09-09 04:35] LABS: BASOPHILS 0.2 %; BASOPHILS ABSOLUTE 0.03 10/3/uL (0.0-0.16); EOSINOPHILS ABSOLUTE 0.15 10/3/uL (0.0-0.53); HEMATOCRIT 31.5 % (36.0-48.0); HEMOGLOBIN 10.4 g/dL (12.0-16.0); IMMATURE GRANULOCYTES 0.3 %; IMMATURE GRANULOCYTES ABSOLUTE 0.05 10/3/uL (0.0-0.11); LYMPHOCYTES 10.7 %; LYMPHOCYTES ABSOLUTE 1.59 10/3/uL (0.67-4.30); MEAN CORPUSCULAR HEMOGLOB 31.8 pg (26.0-34.0); MEAN CORPUSCULAR VOLUME 96.3 fL (80-100); MEAN PLATELET VOLUME 11.1 fL (9.2-13.0); MONOCYTES 6.9 %; MONOCYTES ABSOLUTE 1.03 10/3/uL (0.21-1.20); NEUTROPHILS 80.9 %; NEUTROPHILS ABSOLUTE 12.01 10/3/uL (2.02-8.40); PLATELET COUNT 259 10/3/uL (150-400); RBC DISTRIBUTION WIDTH 14.4 % (12.0-16.0); RED CELL COUNT 3.27 10/6/uL (4.0-5.6); WHITE BLOOD CELLS 14.9 10/3/uL (4.5-10.5)
[2016-09-09 04:39] LABS: MANUAL DIFF NO %
[2016-09-09 04:52] LABS: BUN (BLOOD UREA NITROGEN) 17 MG/DL (6-23); CHLORIDE, SERUM 106 MMOL/L (96-112); CO2 (CARBON DIOXIDE) 25 MMOL/L (24-34); CREATININE 0.87 MG/DL (0.55-1.02); GFR AFRICAN AMERICAN 78 ML/MIN (>=60); GFR NON AFRICAN AMERICAN 67 ML/MIN (>=60); GLUCOSE, SERUM 122 MG/DL (60-99); POTASSIUM, SERUM 3.4 MMOL/L (3.5-5.3); SODIUM, SERUM 139 MMOL/L (135-148); TROPONIN I 6.17 NG/ML (<0.05)
[2016-09-09 06:09] LABS: PROCALCITONIN 0.87 ng/mL (<0.5)
[2016-09-10 04:49] LABS: BASOPHILS 0.3 %; BASOPHILS ABSOLUTE 0.03 10/3/uL (0.0-0.16); EOSINOPHILS 1.3 %; EOSINOPHILS ABSOLUTE 0.13 10/3/uL (0.0-0.53); HEMATOCRIT 31.1 % (36.0-48.0); IMMATURE GRANULOCYTES 0.6 %; IMMATURE GRANULOCYTES ABSOLUTE 0.06 10/3/uL (0.0-0.11); LYMPHOCYTES 20.5 %; LYMPHOCYTES ABSOLUTE 2.04 10/3/uL (0.67-4.30); MEAN CORPUS HGB CONC 32.2 g/dL (32.0-36.0); MEAN CORPUSCULAR HEMOGLOB 30.8 pg (26.0-34.0); MEAN CORPUSCULAR VOLUME 95.7 fL (80-100); MONOCYTES 11.3 %; MONOCYTES ABSOLUTE 1.12 10/3/uL (0.21-1.20); NEUTROPHILS ABSOLUTE 6.55 10/3/uL (2.02-8.40); PLATELET COUNT 280 10/3/uL (150-400); RBC DISTRIBUTION WIDTH 14.5 % (12.0-16.0); RED CELL COUNT 3.25 10/6/uL (4.0-5.6); WHITE BLOOD CELLS 9.9 10/3/uL (4.5-10.5)
[2016-09-10 04:51] LABS: MANUAL DIFF NO %
[2016-09-10 05:06] LABS: CHLORIDE, SERUM 106 MMOL/L (96-112); CO2 (CARBON DIOXIDE) 26 MMOL/L (24-34); GFR AFRICAN AMERICAN 87 ML/MIN (>=60); GFR NON AFRICAN AMERICAN 75 ML/MIN (>=60); GLUCOSE, SERUM 110 MG/DL (60-99); SODIUM, SERUM 140 MMOL/L (135-148)
[2016-09-10 05:09] LABS: BUN (BLOOD UREA NITROGEN) 10 MG/DL (6-23); POTASSIUM, SERUM 3.7 MMOL/L (3.5-5.3); TROPONIN I 4.11 NG/ML (<0.05)
[2016-09-10 09:05] LABS: BASOPHILS 0.4 %; BASOPHILS ABSOLUTE 0.04 10/3/uL (0.0-0.16); EOSINOPHILS 1.8 %; EOSINOPHILS ABSOLUTE 0.18 10/3/uL (0.0-0.53); HEMATOCRIT 32.1 % (36.0-48.0); HEMOGLOBIN 10.5 g/dL (12.0-16.0); IMMATURE GRANULOCYTES 0.7 %; IMMATURE GRANULOCYTES ABSOLUTE 0.07 10/3/uL (0.0-0.11); LYMPHOCYTES 16.8 %; LYMPHOCYTES ABSOLUTE 1.68 10/3/uL (0.67-4.30); MEAN CORPUS HGB CONC 32.7 g/dL (32.0-36.0); MEAN CORPUSCULAR HEMOGLOB 31.3 pg (26.0-34.0); MEAN CORPUSCULAR VOLUME 95.8 fL (80-100); MEAN PLATELET VOLUME 10.9 fL (9.2-13.0); MONOCYTES 10.6 %; MONOCYTES ABSOLUTE 1.06 10/3/uL (0.21-1.20); NEUTROPHILS 69.7 %; NEUTROPHILS ABSOLUTE 6.96 10/3/uL (2.02-8.40); PLATELET COUNT 282 10/3/uL (150-400); RBC DISTRIBUTION WIDTH 14.4 % (12.0-16.0); RED CELL COUNT 3.35 10/6/uL (4.0-5.6)
[2016-09-10 09:06] LABS: MANUAL DIFF NO %
[2016-09-10 09:11] LABS: INTERNATIONAL NORMAL RATI 1.1 UNITS (-); PROTIME (NOT ORD) 14.2 SEC (12.0-14.5)
[2016-09-10 09:20] LABS: BUN (BLOOD UREA NITROGEN) 10 MG/DL (6-23); CALCIUM, SERUM 8.8 MG/DL (8.5-10.4); CHLORIDE, SERUM 104 MMOL/L (96-112); CO2 (CARBON DIOXIDE) 28 MMOL/L (24-34); CREATININE 0.73 MG/DL (0.55-1.02); GFR AFRICAN AMERICAN 97 ML/MIN (>=60); GFR NON AFRICAN AMERICAN 83 ML/MIN (>=60); GLUCOSE, SERUM 107 MG/DL (60-99); POTASSIUM, SERUM 3.7 MMOL/L (3.5-5.3); SODIUM, SERUM 140 MMOL/L (135-148)
[2016-09-10 09:22] LABS: CHOL/HDL RATIO(NOT ORDER) 2.2 (0-5); CHOLESTEROL 96 MG/DL (< 200); HDL CHOLESTEROL 43 MG/DL (> 49); LDL CHOLESTEROL 33 MG/DL (< 130); NON-HDL CHOLESTEROL 53 MG/DL (< 160); TRIGLYCERIDE 102 MG/DL (< 150)
[2016-09-11 05:41] LABS: BASOPHILS 0.5 %; BASOPHILS ABSOLUTE 0.04 10/3/uL (0.0-0.16); EOSINOPHILS ABSOLUTE 0.15 10/3/uL (0.0-0.53); HEMATOCRIT 31.4 % (36.0-48.0); HEMOGLOBIN 10.2 g/dL (12.0-16.0); IMMATURE GRANULOCYTES ABSOLUTE 0.08 10/3/uL (0.0-0.11); LYMPHOCYTES 19.8 %; LYMPHOCYTES ABSOLUTE 1.51 10/3/uL (0.67-4.30); MEAN CORPUS HGB CONC 32.5 g/dL (32.0-36.0); MEAN CORPUSCULAR VOLUME 95.4 fL (80-100); MEAN PLATELET VOLUME 10.8 fL (9.2-13.0); MONOCYTES 12.2 %; MONOCYTES ABSOLUTE 0.93 10/3/uL (0.21-1.20); NEUTROPHILS 64.5 %; NEUTROPHILS ABSOLUTE 4.92 10/3/uL (2.02-8.40); PLATELET COUNT 292 10/3/uL (150-400); RBC DISTRIBUTION WIDTH 14.6 % (12.0-16.0); RED CELL COUNT 3.29 10/6/uL (4.0-5.6); WHITE BLOOD CELLS 7.6 10/3/uL (4.5-10.5)
[2016-09-11 05:46] LABS: MANUAL DIFF NO %
[2016-09-11 05:51] LABS: BUN (BLOOD UREA NITROGEN) 9 MG/DL (6-23); CALCIUM, SERUM 8.5 MG/DL (8.5-10.4); CHLORIDE, SERUM 108 MMOL/L (96-112); CO2 (CARBON DIOXIDE) 27 MMOL/L (24-34); CREATININE 0.74 MG/DL (0.55-1.02); GFR AFRICAN AMERICAN 95 ML/MIN (>=60); GFR NON AFRICAN AMERICAN 82 ML/MIN (>=60); GLUCOSE, SERUM 89 MG/DL (60-99); POTASSIUM, SERUM 3.8 MMOL/L (3.5-5.3); SODIUM, SERUM 142 MMOL/L (135-148)
[2016-09-13 05:12] LABS: BASOPHILS 0.5 %; BASOPHILS ABSOLUTE 0.04 10/3/uL (0.0-0.16); EOSINOPHILS 3.8 %; EOSINOPHILS ABSOLUTE 0.29 10/3/uL (0.0-0.53); HEMATOCRIT 33.1 % (36.0-48.0); HEMOGLOBIN 10.5 g/dL (12.0-16.0); IMMATURE GRANULOCYTES 0.8 %; IMMATURE GRANULOCYTES ABSOLUTE 0.06 10/3/uL (0.0-0.11); LYMPHOCYTES 25.8 %; LYMPHOCYTES ABSOLUTE 1.98 10/3/uL (0.67-4.30); MEAN CORPUS HGB CONC 31.7 g/dL (32.0-36.0); MEAN CORPUSCULAR HEMOGLOB 31.1 pg (26.0-34.0); MEAN CORPUSCULAR VOLUME 97.9 fL (80-100); MEAN PLATELET VOLUME 10.4 fL (9.2-13.0); NEUTROPHILS 56.1 %; NEUTROPHILS ABSOLUTE 4.31 10/3/uL (2.02-8.40); PLATELET COUNT 323 10/3/uL (150-400); RBC DISTRIBUTION WIDTH 14.7 % (12.0-16.0); RED CELL COUNT 3.38 10/6/uL (4.0-5.6); WHITE BLOOD CELLS 7.7 10/3/uL (4.5-10.5)
[2016-09-13 05:14] LABS: MANUAL DIFF NO %
[2016-09-13 05:34] LABS: BUN (BLOOD UREA NITROGEN) 8 MG/DL (6-23); CALCIUM, SERUM 8.4 MG/DL (8.5-10.4); CHLORIDE, SERUM 104 MMOL/L (96-112); CO2 (CARBON DIOXIDE) 30 MMOL/L (24-34); CREATININE 0.65 MG/DL (0.55-1.02); GFR AFRICAN AMERICAN 104 ML/MIN (>=60); GFR NON AFRICAN AMERICAN 90 ML/MIN (>=60); GLUCOSE, SERUM 98 MG/DL (60-99); POTASSIUM, SERUM 3.7 MMOL/L (3.5-5.3); SODIUM, SERUM 139 MMOL/L (135-148)
[2016-09-14 06:05] LABS: BASOPHILS 0.8 %; BASOPHILS ABSOLUTE 0.06 10/3/uL (0.0-0.16); EOSINOPHILS 4.8 %; EOSINOPHILS ABSOLUTE 0.36 10/3/uL (0.0-0.53); HEMATOCRIT 33.9 % (36.0-48.0); HEMOGLOBIN 10.8 g/dL (12.0-16.0); IMMATURE GRANULOCYTES 0.7 %; IMMATURE GRANULOCYTES ABSOLUTE 0.05 10/3/uL (0.0-0.11); LYMPHOCYTES 23.6 %; LYMPHOCYTES ABSOLUTE 1.76 10/3/uL (0.67-4.30); MEAN CORPUS HGB CONC 31.9 g/dL (32.0-36.0); MEAN CORPUSCULAR HEMOGLOB 30.9 pg (26.0-34.0); MEAN CORPUSCULAR VOLUME 97.1 fL (80-100); MEAN PLATELET VOLUME 10.6 fL (9.2-13.0); MONOCYTES 11.9 %; MONOCYTES ABSOLUTE 0.89 10/3/uL (0.21-1.20); NEUTROPHILS 58.2 %; NEUTROPHILS ABSOLUTE 4.34 10/3/uL (2.02-8.40); PLATELET COUNT 351 10/3/uL (150-400); RBC DISTRIBUTION WIDTH 14.8 % (12.0-16.0); RED CELL COUNT 3.49 10/6/uL (4.0-5.6); WHITE BLOOD CELLS 7.5 10/3/uL (4.5-10.5)
[2016-09-14 06:07] LABS: MANUAL DIFF NO %
[2016-09-14 06:10] LABS: INTERNATIONAL NORMAL RATI 1.1 UNITS (-); PROTIME (NOT ORD) 14.4 SEC (12.0-14.5)
[2016-09-14 06:28] LABS: ALBUMIN 2.6 G/DL (3.5-5.0); ALKALINE PHOSPHATASE 87 U/L (45-117); BUN (BLOOD UREA NITROGEN) 7 MG/DL (6-23); CALCIUM, SERUM 8.6 MG/DL (8.5-10.4); CHLORIDE, SERUM 102 MMOL/L (96-112); CO2 (CARBON DIOXIDE) 31 MMOL/L (24-34); CREATININE 0.61 MG/DL (0.55-1.02); GFR AFRICAN AMERICAN 106 ML/MIN (>=60); GFR NON AFRICAN AMERICAN 92 ML/MIN (>=60); GLUCOSE, SERUM 93 MG/DL (60-99); PHOSPHORUS, SERUM 2.6 MG/DL (2.5-4.5); POTASSIUM, SERUM 3.5 MMOL/L (3.5-5.3); SGOT(AST) 18 U/L (5-40); SGPT(ALT) 9 U/L (5-65); SODIUM, SERUM 139 MMOL/L (135-148); TOTAL BILIRUBIN 0.4 MG/DL (0-1.2); TOTAL PROTEIN 6.3 G/DL (6.0-8.5)
[2016-09-14 06:30] LABS: DIRECT BILIRUBIN < 0.1 MG/DL (0.0-0.4); INDIRECT BILIRUBIN(NOT ORDER) 0.3 MG/DL (0.1-0.9)
[2016-09-14] MEDS ORDERED: LEVAQUIN750 MG PO (12:47)
[2016-09-14] MEDS ORDERED: NORV10 PO (12:47)
== END 2016-09-14 15:17 | disposition home health service (06) | DRG 871 ==
LOC: ER 20:47 → IMCU 21:08 → 6NO 09-07 17:00
PROVIDERS: Emergency Medicine; Hospitalist; Internal Medicine; Internal Medicine Cardiovascular Disease; Nurse Practitioner Family
PROC: 4A023N7 Measurement of Cardiac Sampling and Pressure, Left Heart, Percutaneous Approach (ICD-10-PCS; principal; 2016-09-10)
PROC: B2111ZZ Fluoroscopy of Multiple Coronary Arteries using Low Osmolar Contrast (ICD-10-PCS; 2016-09-10)
PROC: B2151ZZ Fluoroscopy of Left Heart using Low Osmolar Contrast (ICD-10-PCS; 2016-09-10)
PROC: 0DJD8ZZ Inspection of Lower Intestinal Tract, Via Natural or Artificial Opening Endoscopic (ICD-10-PCS; 2016-09-14)
PROC: 0DB68ZX Excision of Stomach, Via Natural or Artificial Opening Endoscopic, Diagnostic (ICD-10-PCS; 2016-09-14)
DX: A40.8 Other streptococcal sepsis (principal); R65.21 Severe sepsis with septic shock; G93.41 Metabolic encephalopathy; J18.9 Pneumonia, unspecified organism; N17.9 Acute kidney failure, unspecified; E11.9 Type 2 diabetes mellitus without complications; D64.9 Anemia, unspecified; I24.8 Other forms of acute ischemic heart disease; A41.59 Other Gram-negative sepsis; E78.00 Pure hypercholesterolemia, unspecified; I10 Essential (primary) hypertension; M19.90 Unspecified osteoarthritis, unspecified site; G89.4 Chronic pain syndrome; K21.9 Gastro-esophageal reflux disease without esophagitis; K44.9 Diaphragmatic hernia without obstruction or gangrene; F41.9 Anxiety disorder, unspecified; F32.9 Major depressive disorder, single episode, unspecified; K29.70 Gastritis, unspecified, without bleeding; Z90.49 Acquired absence of other specified parts of digestive tract; Z91.018 Allergy to other foods; Z91.048 Other nonmedicinal substance allergy status; Z82.49 Family history of ischemic heart disease and other diseases of the circulatory system; Z85.038 Personal history of other malignant neoplasm of large intestine; Z87.11 Personal history of peptic ulcer disease; Z96.641 Presence of right artificial hip joint; Z96.653 Presence of artificial knee joint, bilateral; Z96.612 Presence of left artificial shoulder joint; Z86.010 Personal history of colon polyps; Z86.718 Personal history of other venous thrombosis and embolism; Z98.0 Intestinal bypass and anastomosis status
CPT/HCPCS: 70450; 71010; 71020; 74176; 80048; 80053; 80061; 80076; 80305; 80307; 81001; 83605; 83735; 83880; 84100; 84132; 84145; 84439; 84443; 84484; 85025; 85610; 85730; 87040; 87077; 87150; 87186; 87641; 88305; 93005; 93458; 94640; 97116-GP; 97161-GP; 99152; 99285; A9270-GY; C1769; C1894; C8929; G8978-CK-GP; G8979-CJ-GP; J0360; J0690; J0692; J2250; J2405; J3010; J3370; Q9957; Q9967